=== PATIENT | female | born 1990 | race Hispanic/Latino ===

== ENCOUNTER 2023-03-03 01:42 | Emergency (ER) | payer SELFPAY ==
[2023-03-03] MEDS ORDERED: Mag-Al Plus 1200 MG/1200 MG/120 MG/30 ML UDCUP ONE (02:07)
[2023-03-03] MEDS ORDERED: Lidocaine Viscous Sol 2% 15 ml UD Cup ONE (02:07)
[2023-03-03 02:30] LABS: Bilirubin Negative (Negative); Blood, Urine Negative (Negative); Clarity Cloudy (Clear); Glucose, Urine (Dipstick) Negative (Negative); Ketone, Urine Negative (Negative); Leukocyte Trace (Negative); Nitrite Negative (Negative); Protein, Urine (Dipstick) Negative (Neg-Trace); Specific Gravity, Urine 1.026 (1.002-1.036)
[2023-03-03 02:31] LABS: Bacteria/HPF 1+ HPF (None Seen); Calcium Oxalate Crystals 2+ HPF (None Seen); Mucous/LPF 3+ LPF (<2+); RBC/HPF 0-3 HPF (0-3)
[2023-03-03] MEDS ORDERED: Ketorolac Tromethamine 30 MG/ML VIAL ONE (02:36)
[2023-03-03] MEDS ORDERED: Sodium Chloride 0.9% 1,000 ML ONE (02:36)
[2023-03-03] MEDS ORDERED: Ondansetron PF 4 MG/2 ML Vial ONE (02:36)
[2023-03-03 02:52] LABS: #Basophils 0.1 thou/uL (0.0-0.2); #Eosinphils 0.1 thou/uL (0.0-0.7); #Lymphocytes 0.8 thou/uL (1.20-3.40); #Monocytes 0.7 thou/uL (0.11-0.59); #Neutrophils 11.3 thou/uL (1.40-6.50); %Basophils 0.4 % (0.0-1.0); %Eosinophils 0.4 % (0.0-10.0); %Lymphocytes 6.4 % (21.0-51.0); %Monocytes 5.4 % (0.0-10.0); %Neutrophils 87.4 % (42.0-75.0); Hemoglobin 12.4 g/dL (12.0-16.0); Mean Corpuscular HGB CONC 33.4 g/dL (32.0-36.0); Mean Corpuscular Hemoglobin 30.8 pg (27.0-31.0); Mean Platelet Volume 9.6 fL (7.4-10.4); Platelet Count 272 10x3/uL (130-400); RBC Distribution Width 12.1 % (11.5-14.5); Red Blood Cell (RBC) Count 4.03 mill/uL (4.20-5.40); White Blood Cell (WBC) Count 12.9 10x3/uL (4.8-10.8)
[2023-03-03 03:01] LABS: BHCG - Serum Negative (NEGATIVE); Pregs Control Background? CLEAR/WHITE (CLR/WHITE); Pregs Control Bar Appear? YES (CONTROL BAR)
[2023-03-03] MEDS ORDERED: Piperacillin/Tazobactam 4.5 GM VIAL ONE (03:07)
[2023-03-03] MEDS ORDERED: Sodium Chloride 0.9% 100 ML ONE (03:07)
[2023-03-03 03:13] LABS: ALT (SGPT) 42 U/L (8-55); AST (SGOT) 104 U/L (5-34); Alkaline Phosphatase 77 U/L (40-110); Anion Gap 12 mmol/L (10-20); BUN (Urea Nitrogen) 10 mg/dL (7.0-18.7); Bilirubin, Total 0.5 mg/dL (0.2-1.2); Calc. Creatinine Clearance 0 mL/min (70-130); Calcium 8.8 mg/dL (7.8-10.44); Carbon Dioxide 23 mmol/L (22-29); Chloride 107 mmol/L (98-107); Estimated GFR 115; Globulin 3.3 g/dL (2.4-3.5); Glucose 144 mg/dL (70-105); Lipase 32 U/L (8-78); Potassium 3.6 mmol/L (3.5-5.1); Protein, Total 7.3 g/dL (6.0-8.3); Sodium 138 mmol/L (136-145)
[2023-03-03] MEDS ORDERED: Iopamidol 370 76% 100 ML VIAL ONE (09:07)
== END 2023-03-03 05:35 | disposition home or self-care (01) ==
LOC: MADERS 01:42
DX: R10.12 Left upper quadrant pain (principal); R10.11 Right upper quadrant pain; D72.829 Elevated white blood cell count, unspecified
CPT/HCPCS: 74177; 80053; 81003; 81015; 83605; 83690; 84484; 84703; 85025; 87040; 93005; 96365; 96375; J1885; J2405; J2543; J3490; J7050; Q9967